=== PATIENT | male | born 1950 | race Caucasian/White ===

== ENCOUNTER 2018-08-29 07:52 | Day surgery (SDC) | payer BC ==
[~2018-08-29] VITALS: Ht 177.8 cm; Wt 122.5 kg
[~2018-08-29 07:52] MED LIST: AMLO-332 PO; ROSU10TA28 PO; SODIUM CHLORIDE 0.9% 1000ML 1,000 ML IV ONE
[2018-08-29 10:24] VITALS: BP 145/76
[2018-08-29] MEDS ORDERED: METOCLOPRAMIDE 10 MG/2 ML VIAL ONE (10:35)
[2018-08-29] MEDS ORDERED: PROPOFOL 10 MG/ML 20ML VIAL IV ONE (11:13)
[2018-08-29] MEDS ORDERED: PROPOFOL 1000 MG/100 ML 100 ML IV ONE (11:32)
[2018-08-29 11:44] VITALS: BP 102/58
[2018-08-29 11:49] VITALS: BP 123/64
[2018-08-29 11:54] VITALS: BP 132/64
[2018-08-29 12:00] VITALS: BP 127/59
== END 2018-08-29 12:10 | disposition home or self-care (01) ==
LOC: ENDO 07:52 → DAH 07:52 → ENDO 12:10
PROVIDERS: ATTEND Internal Medicine
DX: Z12.11 Encounter for screening for malignant neoplasm of colon (principal); K57.30 Diverticulosis of large intestine without perforation or abscess without bleeding; K64.0 First degree hemorrhoids; K62.1 Rectal polyp; Z86.010 Personal history of colon polyps; D12.2 Benign neoplasm of ascending colon; E78.5 Hyperlipidemia, unspecified
CPT/HCPCS: 45380; A4606; J2704 ×2; J2765; J7030

== ENCOUNTER → 2021-09-16 | Outpatient (CLI) | payer BC ==
[~2021-09-16] MED LIST changes: -AMLO-332 PO; +AMLO-387 PO; -SODIUM CHLORIDE 0.9% 1000ML 1,000 ML IV ONE
== END | disposition home or self-care (01) ==
LOC: RAH 12:32
PROVIDERS: ATTEND Internal Medicine
DX: I12.9 Hypertensive chronic kidney disease with stage 1 through stage 4 chronic kidney disease, or unspecified chronic kidney disease (principal); I50.32 Chronic diastolic (congestive) heart failure; E66.9 Obesity, unspecified; I11.0 Hypertensive heart disease with heart failure; E78.5 Hyperlipidemia, unspecified; I34.0 Nonrheumatic mitral (valve) insufficiency
CPT/HCPCS: 93306

== ENCOUNTER 2024-03-05 12:17 | Emergency (ER) | payer MEDICARE ==
[~2024-03-05] VITALS: Ht 180.3 cm; Wt 145.1 kg
[~2024-03-05 12:17] MED LIST changes: -ROSU10TA28 PO; +ROSU10TA72 PO
[2024-03-05] MEDS ORDERED: ATROPINE 1MG SYG IVP ONE (12:18)
[2024-03-05 12:46] VITALS: PULSE 63; O2SAT 94
--- NOTE | 2024-03-05 13:19 | ERN ---
General Chief Complaint: CPR/Full Arrest Stated Complaint: CARDIAC ARREST Time Seen by MD: 13:07 Source: EMS History of Present Illness Initial Comments 73-year-old male brought in by EMS for cardiac arrest. As per EMS patient was found hypotensive and prior to making phone call patient was complaining of chest pain. When EMS got to seen patient became unresponsive and went into asystole. Paramedics intubated the patient on the scene. Paramedics ran CPR for 25 minutes and they continued to have PEA without any successful rhythm. Upon arrival CPR is resumed per ACLS protocol. Patient was also noted to have fixed dilated pupil. CPR continued for 35 minutes here in the emergency room without any successful rhythm or pulse. On cardiac ultrasound there is no cardiac activity noted. After the CPR patient had no pulse and carotid radial or femoral region. There was also no successful rhythm at the end of the CPR inpatient has been all . Family has been informed. Allergies: Coded Allergies: aspirin (Unverified Allergy, Unknown, 08/28/18) Home Meds Reported Medications Rosuvastatin Calcium (Rosuvastatin Calcium) 10 Mg Tablet, 10 MG PO DAILY, TAB 08/28/18 Amlodipine/Valsartan (Amlodipine-Valsartan 10-160 mg) 1 Each Tablet, 1 EACH PO DAILY, TAB 08/28/18 ROS Dictation Unable to obtain Physical Exam Physical Exam Dictation Unable to obtain Eyes Comment Fixed and dilated pupil Respiratory Comment Bilateral breath sounds Heart Comment No audible heart sound asystole on monitor Gastrointestinal Comment Nondistended abdomen with no signs of trauma Extremities Comment No deformity noted MDM Cardiac arrest CPR ran per ACLS protocol. Detail on CPR can be found on charge nurse's note. Upon arrival patient remains without a pulse. Bit Sander intubated the patient on scene and ran the code for 25 minutes without any successful rhythm. CPR was continued for another 35 minutes without any successful pulse or rhythm. Patient has fixed dilated pupils and ultrasound shows no cardiac activity. Patient was pronounced and family has been informed. ED Course Orders Procedure Category Date Status Time Ventilator Settings RT 03/05/24 Transmitted 14:15 Vital Signs Date Time Temp Pulse Resp B/P (MAP) Pulse Ox O2 Delivery O2 Flow Rate FiO2 03/05/24 12:46 63 100 DX & DISP Disposition: Departure Impression: Primary Impression: Cardiac arrest Condition: Stable Referrals: ADAM GRFIFITHS MD (PCP) IKER BHANDARI MD Mar 05, 2024 13:19
--- NOTE | 2024-03-05 15:54 | NUR ---
/ NOTE: REFER TO CODE BLUE SHEET 1-3 REFER TO CERTIFICATE OF ALL PAPERWORK TURNED INTO [employer]
== END 2024-03-05 16:06 ==
LOC: EDH 12:17
DX: I46.9 Cardiac arrest, cause unspecified (principal); Z79.899 Other long term (current) drug therapy; Z88.6 Allergy status to analgesic agent
CPT/HCPCS: 99285; 92950; J0171; J0461; J3490; J1265; 94002